=== PATIENT | female | born 1965 | race Caucasian/White ===

== ENCOUNTER 2017-04-16 23:21 | Inpatient (IN) | payer OTHER ==
[~2017-04-16] VITALS: Ht 165.1 cm; Wt 104.4 kg
[~2017-04-16 23:21] MED LIST: AZITHROMYCIN500 M1 PO; CYANOCOBALAM1000 MCG PO; DEPAKOTE500 MG PO; GENTAK3.5 GM BOTH EYES; KEFLEX500 MG PO; LACTAID9000 UNIT PO; LEXAPRO20 MG PO; SEROQUEL PO; SEROQUEL XR300 MG PO; SEROQUEL200 MG PO; SYNTHROID100 MCG PO; SYNTHROID112 MCG PO; SYNTHROID125 MCG PO; ZYPREXA5 MG PO
[2017-04-17 00:29] LABS: HEMATOCRIT 38.8 % (36.0-46.0); MCH 29.9 PG (29.0-34.0); MCHC 31.7 G/DL (30.0-36.0); MCV 94.2 FL (83-99); PLATELET COUNT 145 K/uL (156-360); RBC DIS.WIDTH-CV 14.5 % (11.8-14.6); RED BLOOD COUNT 4.12 M/uL (3.80-5.20); WHITE BLOOD COUNT 6.7 K/uL (4.1-10.2)
[2017-04-17 00:39] LABS: CHLORIDE 109 mEq/L (99-109)
[2017-04-17 00:40] LABS: POTASSIUM 3.7 mEq/L (3.7-5.4); SODIUM 142 mEq/L (136-147)
[2017-04-17 00:41] LABS: GLUCOSE 113 mg/dL (70-99)
[2017-04-17 00:43] LABS: ANION GAP 9 MEQ/L (2-14)
[2017-04-17 00:44] LABS: SERUM ETHYL ALCOHOL < 10 mg/dL
[2017-04-17 00:45] LABS: GFR ESTIMATE (CALCULATED) 46 mL/min/
[2017-04-17 00:47] LABS: UREA NITROGEN (BUN) 20 mg/dL (9-23)
[2017-04-17 00:48] LABS: SALICYLATE < 5.0 MG/DL (15-30)
[2017-04-17 00:54] LABS: QUANTITATIVE HCG < 4.0 MIU/ML
[2017-04-17 01:03] LABS: ADD MIUA? YES; BILIRUBIN NEGATIVE; BLOOD NEGATIVE; COLOR YELLOW ((YELLOW)); GLUCOSE (STRIP) NEGATIVE; KETONES NEGATIVE; LEUKOCYTES LARGE; NITRITE NEGATIVE; PROTEIN (STRIP) NEGATIVE; SPECIFIC GRAVITY 1.009 (1.000-1.030); UROBILINOGEN 0.2 MG/DL (0.2-1.0)
[2017-04-17 01:09] LABS: BACTERIA RARE /HPF; EPITHELIAL CELLS 2+ /HPF; MUCUS NONE SEEN /LPF; RED BLOOD CELLS 0-5 /HPF (0-5); UCUL ADDED? NO
[2017-04-17 01:15] LABS: AMPHETAMINE NEGATIVE (500 ng/mL); BARBITURATES NEGATIVE (200 ng/mL); BENZODIAZEPINES NEGATIVE (150 ng/mL); COCAINE NEGATIVE (150 ng/mL); INTERNAL CONTROLS VALID? YES; METHADONE NEGATIVE (200 ng/mL); METHAMPHETAMINE NEGATIVE (500 ng/mL); OPIATES (MORPHINE) NEGATIVE (100 ng/mL); OXYCODONE NEGATIVE (100 ng/mL); PHENCYCLIDINE NEGATIVE (25 ng/mL); PROPOXYPHENE NEGATIVE (300 ng/mL); THC CANNABINOIDS NEGATIVE (50 ng/mL); TRICYCLIC ANTIDEPRESSANTS NEGATIVE (300 ng/mL)
[2017-04-17] MEDS ORDERED: BUSPAR10 MG PO (07:21)
[2017-04-17] MEDS ORDERED: COLACE100 MG PO (07:23)
[2017-04-17] MEDS ORDERED: MELATONIN1 M2 PO (07:23)
[2017-04-17] MEDS ORDERED: LORATADINE10 M2 PO (07:24)
[2017-04-17] MEDS ORDERED: CALCITRIOL0.25 MCG PO (07:24)
[2017-04-17 07:53] VITALS: BP 134/74
[2017-04-17 15:05] VITALS: BP 118/71
[2017-04-18 07:52] VITALS: BP 139/68
[2017-04-18 15:13] VITALS: BP 172/79
[2017-04-18 19:37] VITALS: BP 166/90
[2017-04-19 07:47] VITALS: BP 125/56
[2017-04-19 15:16] VITALS: BP 126/58
[2017-04-20 07:28] VITALS: BP 122/68
[2017-04-20 15:42] VITALS: BP 121/60
[2017-04-21 07:40] VITALS: BP 121/71
[2017-04-21] MEDS ORDERED: FLUOXETINE HCL20 MG PO (10:06)
== END 2017-04-21 16:00 | disposition home or self-care (01) | DRG 885 ==
LOC: EME → EDBD 23:21 → 1WEST 04-17 05:22 → EDOF 04-17 05:22 → 1WEST 04-17 07:41
PROVIDERS: Emergency Medicine
DX: F33.9 Major depressive disorder, recurrent, unspecified (principal); R45.851 Suicidal ideations; Z81.1 Family history of alcohol abuse and dependence; R41.83 Borderline intellectual functioning; Q86.0 Fetal alcohol syndrome (dysmorphic); F41.9 Anxiety disorder, unspecified; R45.1 Restlessness and agitation; Z60.2 Problems related to living alone; F79 Unspecified intellectual disabilities
CPT/HCPCS: 73130; 80048; 80164; 81003; 84702; 85027; 90837; 93005; 97150 GO; 97165 GO; 99281; 99285; G0480; J7030

== ENCOUNTER 2017-07-17 19:58 | Emergency (ER) | payer OTHER ==
[~2017-07-17] VITALS: Ht 165.1 cm; Wt 93.5 kg
[~2017-07-17 19:58] MED LIST changes: +BUSPAR10 MG PO; +CALCITRIOL0.25 MCG PO; +COLACE100 MG PO; +FLUOXETINE HCL20 MG PO; +LORATADINE10 M2 PO; +MELATONIN1 M2 PO
[2017-07-17 20:38] LABS: HEMATOCRIT 36.4 % (36.0-46.0); MCH 30.8 PG (29.0-34.0); MCHC 32.7 G/DL (30.0-36.0); MCV 94.3 FL (83-99); MEAN PLAT.VOLUME 12.5 uM^3 (9.5-12.4); PLATELET COUNT 136 K/uL (156-360); RBC DIS.WIDTH-CV 13.2 % (11.8-14.6); RBC DIS.WIDTH-SD 45.1 % (39-53); RED BLOOD COUNT 3.86 M/uL (3.80-5.20); WHITE BLOOD COUNT 9.2 K/uL (4.1-10.2)
[2017-07-17 20:46] LABS: AMPHETAMINE NEGATIVE (500 ng/mL); BARBITURATES NEGATIVE (200 ng/mL); BENZODIAZEPINES NEGATIVE (150 ng/mL); COCAINE NEGATIVE (150 ng/mL); INTERNAL CONTROLS VALID? YES; METHADONE NEGATIVE (200 ng/mL); METHAMPHETAMINE NEGATIVE (500 ng/mL); OPIATES (MORPHINE) NEGATIVE (100 ng/mL); OXYCODONE NEGATIVE (100 ng/mL); PHENCYCLIDINE NEGATIVE (25 ng/mL); PROPOXYPHENE NEGATIVE (300 ng/mL); THC CANNABINOIDS NEGATIVE (50 ng/mL); TRICYCLIC ANTIDEPRESSANTS NEGATIVE (300 ng/mL)
[2017-07-17 20:47] LABS: CHLORIDE 111 mEq/L (99-109); SODIUM 146 mEq/L (136-147)
[2017-07-17 20:48] LABS: GLUCOSE 90 mg/dL (70-99)
[2017-07-17 20:50] LABS: ANION GAP 11 MEQ/L (2-14)
[2017-07-17 20:51] LABS: SERUM ETHYL ALCOHOL < 10 mg/dL
[2017-07-17 20:52] LABS: GFR ESTIMATE (CALCULATED) 42 mL/min/
[2017-07-17 20:53] LABS: UREA NITROGEN (BUN) 21 mg/dL (9-23)
[2017-07-17 23:22] VITALS: BP 162/54
== END 2017-07-17 23:22 | disposition home or self-care (01) ==
LOC: EME 19:58
DX: F32.9 Major depressive disorder, single episode, unspecified (principal); R41.83 Borderline intellectual functioning; F60.9 Personality disorder, unspecified; Z04.6 Encounter for general psychiatric examination, requested by authority; E03.9 Hypothyroidism, unspecified
CPT/HCPCS: 80048; 85027; 90837; 99281; 99285; G0480

== ENCOUNTER 2018-05-15 10:45 | Inpatient (IN) | payer OTHER ==
[~2018-05-15] VITALS: Ht 165.1 cm; Wt 110.0 kg
[2018-05-15 11:30] LABS: HEMATOCRIT 40.6 % (36.0-46.0); HEMOGLOBIN 13.9 G/DL (11.9-15.5); MCH 30.6 PG (29.0-34.0); MCHC 34.2 G/DL (30.0-36.0); MCV 89.4 FL (83-99); RBC DIS.WIDTH-CV 12.7 % (11.8-14.6); RBC DIS.WIDTH-SD 41.4 % (39-53); RED BLOOD COUNT 4.54 M/uL (3.80-5.20); WHITE BLOOD COUNT 8.1 K/uL (4.1-10.2)
[2018-05-15 11:38] LABS: BILIRUBIN NEGATIVE; BLOOD NEGATIVE; COLOR YELLOW ((YELLOW)); GLUCOSE (STRIP) NEGATIVE; KETONES NEGATIVE; LEUKOCYTES SMALL; NITRITE NEGATIVE; PROTEIN (STRIP) NEGATIVE; SPECIFIC GRAVITY 1.014 (1.000-1.030); UROBILINOGEN 0.2 MG/DL (0.2-1.0)
[2018-05-15 11:39] LABS: APPEARANCE SL.HAZY ((CLEAR))
[2018-05-15 11:39] LABS: CHLORIDE 109 mEq/L (99-109); POTASSIUM 3.9 mEq/L (3.7-5.4); SODIUM 143 mEq/L (136-147)
[2018-05-15 11:40] LABS: GLUCOSE 140 mg/dL (70-99)
[2018-05-15 11:43] LABS: SERUM ETHYL ALCOHOL < 10 mg/dL
[2018-05-15 11:44] LABS: CREATININE 1.3 mg/dL (0.6-1.3); GFR ESTIMATE (CALCULATED) 45 mL/min/
[2018-05-15 11:44] LABS: BACTERIA RARE /HPF; EPITHELIAL CELLS 2+ /HPF; MUCUS TRACE /LPF; RED BLOOD CELLS 0-5 /HPF (0-5); UCUL ADDED? YES
[2018-05-15 11:46] LABS: UREA NITROGEN (BUN) 18 mg/dL (9-23)
[2018-05-15 11:47] LABS: SALICYLATE < 5.0 MG/DL (15-30)
[2018-05-15 11:48] LABS: ACETAMINOPHEN (TYLENOL) < 10 mcg/mL (10-30)
[2018-05-15 11:54] LABS: QUANTITATIVE HCG < 4.0 MIU/ML
[2018-05-15 12:22] LABS: PLATELET COUNT 171 K/uL (156-360)
[2018-05-15 14:23] VITALS: BP 137/70
[2018-05-15 14:24] VITALS: BP 137/70
[2018-05-15] MEDS ORDERED: RISPERDAL3 MG PO (15:04)
[2018-05-15] MEDS ORDERED: OMEPRAZOLE40 M1 PO (15:05)
[2018-05-15] MEDS ORDERED: BENZTROPINE ME0.5 MG PO (15:05)
[2018-05-16 07:39] VITALS: BP 132/66
[2018-05-16 16:21] VITALS: BP 130/60
[2018-05-17 07:56] VITALS: BP 132/65
[2018-05-17 16:04] VITALS: BP 134/89
[2018-05-18 07:46] VITALS: BP 133/63
== END 2018-05-18 10:48 | disposition home or self-care (01) | DRG 885 ==
LOC: EME 10:45 → 1WEST 13:10 → EDOF 13:10 → ENRESERV 14:08 → 1WEST 14:12
PROVIDERS: Emergency Medicine
DX: F31.9 Bipolar disorder, unspecified (principal); Q86.0 Fetal alcohol syndrome (dysmorphic); R45.851 Suicidal ideations; R41.83 Borderline intellectual functioning; E03.9 Hypothyroidism, unspecified
CPT/HCPCS: 80048; 81003; 84702; 85027; 87086; 90837; 97150 GO; 97165 GO; 99281; 99285; G0480; Q0177